=== PATIENT | male | born 1985 | race Caucasian/White ===

== ENCOUNTER → 2024-02-10 | Outpatient (CLI) | payer BC, OTHER | LOC: M WUC 13:55 | PROVIDERS: ATTEND Student in an Organized Health Care Education/Training Program | DX: M79.671 Pain in right foot (principal) ==

== ENCOUNTER → 2024-06-15 | Outpatient (CLI) | payer OTHER | LOC: M PLAIMG 14:06 | PROVIDERS: ATTEND Orthopaedic Surgery | DX: M25.511 Pain in right shoulder (principal); M77.8 Other enthesopathies, not elsewhere classified ==